=== PATIENT | female | born 1965 | race Caucasian/White ===

== ENCOUNTER 2016-09-06 10:26 | Emergency (ER) | payer BC, OTHER ==
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
[2016-09-06 12:25] VITALS: BP 135/80
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
== END 2016-09-06 13:04 | disposition home or self-care (01) ==
LOC: ER 10:26
DX: S13.4XXA Sprain of ligaments of cervical spine, initial encounter (principal); R51 Headache; H53.8 Other visual disturbances; V43.52XA Car driver injured in collision with other type car in traffic accident, initial encounter; I10 Essential (primary) hypertension; G25.81 Restless legs syndrome; Z79.899 Other long term (current) drug therapy; Z88.8 Allergy status to other drugs, medicaments and biological substances; Z88.2 Allergy status to sulfonamides; Z98.84 Bariatric surgery status
CPT/HCPCS: 70450; 99284